=== PATIENT | male | born 1960 | race Caucasian/White ===

== ENCOUNTER 2016-09-10 07:18 | Day surgery (SDC) | payer BC, OTHER ==
[~2016-09-10 07:18] MED LIST: LIDOCAINE W/ SODIUM BICARB 0.5 ML SYR ONE; Lactated Ringers 1,000 ML PRIMARY IV ONE
[2016-09-10] MEDS ORDERED: ceFAZolin Inj 3 GM in Sodium Chloride 0.9% 100 ML IV ONE (07:30)
[2016-09-10] MEDS ORDERED: MIDAZOLAM 5 MG/1 ML ONE (07:47)
[2016-09-10] MEDS ORDERED: fentaNYL Inj 250 MCG/5 ML VIAL ONE (07:47)
[2016-09-10] MEDS ORDERED: BUPivacaine Liposome/PF (Exparel) Inj 20ml vial INFIL ONE (08:26)
[2016-09-10] MEDS ORDERED: Lactated Ringers 1,000 ML PRIMARY IV ONE (08:45)
--- NOTE | 2016-09-10 09:30 | CRNA.PROCE ---
Central Neuraxis Block [facility] - - Safety Measures: Time Out Taken - - Type of Block: Subarachnoid (Bilateral bunionectomies with surgeon using a tourniquet.) Reason for Block: Surgical Moniters Used During Block: SPO2, NIBP Sedation Used - Enter Amount Used in Comment Field: Midazolam (mg): Yes (1.5), Fentanyl (mcg): Yes (100) Positioning: Sitting Skin Prep Used: ChloroPrep (Twice) Draped: Yes Skin Infiltration - Enter Amount Used in Comment Field: 1% Xylocaine (mL): Yes ( .75 ml) Introducer User: 23 Gauge Spinal Needle Used: 25 Reina 80 mm Local Anesthetic - Enter Amount Used in Comment Field: 0.75 % Bupivacaine with Dextrose (ml): Yes (2 ml mixed with CSF) Bioclusive Dressing Applied: No - - Additional Details: Supine after block placed. Transferred to OR number 2 moved over to bed. Patient reports both legs to be anesthetized. Lala Amos MS, APPLIED RESEARCH DIRECTOR
[2016-09-10] MEDS ORDERED: HYDROcodone-APAP 10 MG-325 MG TABLET PO PRN (10:49)
[2016-09-10] MEDS ORDERED: NORMAL SALINE 10 ML SYRINGE FLUSH IVP PRN (10:49)
--- NOTE | 2016-09-10 11:02 | GEN.OPNOTE ---
Operative Report Surgeon: Jorge L Ruvalcaba DPM Anesthesia Type: Regional (spinal), MAC Anesthesia Provider: Lala Amos CRNA Surgery Date: 09/10/16 Preoperative Diagnosis: 1. Hallux rigidus right foot. 2. Hallux rigidus left foot. 3. Gouty arthritis. 4. Foot pain bilaterally. Postoperative Diagnosis: 1. Hallux rigidus right foot. 2. Hallux rigidus left foot. 3. Gouty arthritis. 4. Foot pain bilaterally. Procedure: 1. Left modified Sarah bunionectomy. 2. Right modified Sarah bunionectomy. Estimated Blood Loss (mL): 10 (a pneumatic cuff was used about the left ankle for 49 minutes at 250 mmHg pressure; and then on the right ankle for 45 minutes total time.) Fluids: 3 g of Ancef given preoperatively. 1450 mL lactated Ringer's IV. Injected 10 mL of Exparel subcutaneously about the first ray to each foot. (20 mL's total). Normal saline irrigation solution. Complications: None Findings at Surgery: It was noted on the left foot medial aspect of the joint capsule a small area of gouty tophus was identified and submitted to pathology. Although the patient has had elevated uric acid levels, he has never had a microscopic confirmation. Indications for the Procedure: Ongoing bilateral foot pain. Description of Procedure: The patient was brought to the operating room and placed in the supine position. They had already been given a spinal, and MAC was continued. Both feet were prepped and draped in the usual sterile fashion. A timeout was performed. A preoperative C-arm radiograph was taken of the LEFT foot to help delineate the area of concern, and this was marked on the foot. The foot was then exsanguinated with an elastic Esmarch, after which a pneumatic cuff was inflated about the ankle to 250 mmHg pressure. Attention was directed to the dorsal first metatarsophalangeal joint on the left foot. A linear incision was made just lateral to the extensor hallucis longus tendon of the proximally 4 cm length. This was deepened by sharp and blunt dissection to level of the joint capsule. Joint capsule was also incised longitudinally and retracted as the fibers are released from the exostosis. The dorsal first metatarsal head prominence, forming a bony ridge the blocked the motion was noted around the first metatarsophalangeal joint. The first metatarsal head exostosis was removed with a sagittal saw, dorsally, dorsal laterally, dorsal medially, and medially. There was also an area medially within the medial plantar aspect that appeared as an area of gouty tophus. This was removed with a bone rongeur and submitted to pathology for identification. No other areas like this were found of either foot or other aspects of the joint capsule. The foot was again checked with C-arm and the 1st MTH modified as needed. The wound was copiously irrigated. Range of motion was noted to be increased. Next a rasp was used to smooth the edge of the cuts. The wound was copiously irrigated. Bone wax was applied to the first metatarsal head (except for the medial aspect) and again the wound was copiously irrigated. Exparel was then injected subcutaneously into the tissues of the first ray. Closure was performed with 4-0 Vicryl for the joint capsule and subcutaneous tissues. And 4-0 nylon in a running subcutaneous fashion for the skin. This was reinforced with Mastisol and Steri- Strips. A dressing consisted of Xeroform, gauze, Kerlix, and a Coban dressing. The pneumatic cuff was released after 49 minutes total time from the left ankle. Capillary return was noted all toes. The area of concern was outlined on the RIGHT foot and a planned incision line drawn. The right foot was exsanguinated with an elastic Esmarch, after which a pneumatic cuff was inflated about the ankle to 250 mmHg pressure. Attention was directed to the dorsal first metatarsophalangeal joint on the right foot. A linear incision was made just lateral to the extensor hallucis longus tendon of the proximally 4 cm length. This was deepened by sharp and blunt dissection to level of the joint capsule. Joint capsule was also incised longitudinally and retracted as the fibers are released from the exostosis. The dorsal first metatarsal head prominence, forming a definitive exostosis was noted around the first metatarsophalangeal joint. The first metatarsal head exostosis was removed with a sagittal saw, dorsally, dorsal laterally, dorsal medially, and medially. This was checked with C-arm and modified as needed. The wound was copiously irrigated. Range of motion was noted to be increased. Next a rasp was used to smooth the edge of the cuts. The wound was copiously irrigated. Bone wax was applied to the first metatarsal head (except for the medial aspect ) and again the wound was copiously irrigated.. Exparel was then injected subcutaneously into the tissues of the first ray. Closure was performed with 4- 0 Vicryl for the joint capsule and subcutaneous tissues. And 4-0 nylon for the skin. This was reinforced with Mastisol and Steri-Strips. A dressing consisted of Xeroform, gauze, Kerlix, and a Coban dressing. The pneumatic cuff was released after 45 minutes total time from the right ankle. Capillary return was noted all toes. The patient tolerated the procedure well, and was returned recovery.
[2016-09-10] MEDS ORDERED: Colchicine Tab 0.6 MG TABLET PO ONE ×2 (11:21→11:28)
[2016-09-10 11:38] VITALS: RESP 16
[2016-09-10 14:24] VITALS: TEMP 97
--- NOTE | 2016-09-10 15:50 | OPS CRUTCH ---
Diagnosis : Bilateral Bunionectomy Referral Reason: Walker O: The patient was issued a walker and instructed in its proper use and care. P: No further therapy is indicated at this time. MTDD
--- NOTE | 2016-09-10 16:10 | DI ---
RIGHT FOOT, 09/10/2016 10:49 AM: Clinical History: Hallux rigidus. Gout. Previous Exam: None at this facility. 3 views are submitted. There is no acute soft tissue, osseous, or joint abnormality. There are no ero sive changes in proximity to the joint spaces and there are no soft tissue calcifications. Reading: Normal right foot exam.
--- NOTE | 2016-09-10 16:10 | DI ---
LEFT FOOT, 09/10/2016 10:49 AM: Clinical History: Hallux rigidus. Gout. Previous Exam: None at this facility. 3 views are submitted. There is no acute soft tissue, osseous, or joint abnormality. No erosive boyle es are noted in proximity to the joint spaces. No soft tissue calcifications are evident. Reading: Normal left foot exam.
== END 2016-09-10 14:00 | disposition home or self-care (01) ==
LOC: SDSC 07:18
PROVIDERS: ATTEND Podiatrist Foot & Ankle Surgery
DX: M79.672 Pain in left foot (principal); M79.671 Pain in right foot; M20.22 Hallux rigidus, left foot; M20.21 Hallux rigidus, right foot; Z87.898 Personal history of other specified conditions; M10.9 Gout, unspecified
CPT/HCPCS: 28289 ×2; 73630 ×2; 76001; C9290; J3010; J0690; J2250; J7050; J7120